=== PATIENT | female | born 1935 | race Caucasian/White ===

== ENCOUNTER 2017-01-11 08:48 | Emergency (ER) | payer MEDICARE, BC ==
[~2017-01-11] VITALS: Ht 160 cm; Wt 71.1 kg
[~2017-01-11 08:48] MED LIST: AMIT25TA20 PO; ASPI81TA82 PO; CARV3.125 PO; FURO20 PO; LISI5 PO; SIMV10 PO; XANA0.5T PO
[2017-01-11 08:57] VITALS: BP 153/78; PULSE 74; RESP 16; TEMP 97.9; O2SAT 98
[2017-01-11 09:05] VITALS: BP 153/78; PULSE 74; RESP 16; TEMP 97.9; O2SAT 98
[2017-01-11] MEDS ORDERED: LISI-519 PO (09:09)
[2017-01-11] MEDS ORDERED: SIMV10TA PO (09:10)
[2017-01-11] MEDS ORDERED: CARV3.12 PO (09:10)
[2017-01-11] MEDS ORDERED: FURO20TA PO (09:11)
--- NOTE | 2017-01-11 09:19 | PD ---
HPI Chief Complaint: Eye Problems/Injury Time Seen by Provider: 09:01 Travel History International Travel<30 days: No Contact w/Intl Traveler<30days: No Traveled to known affect area: No History of Present Illness HPI This patient complains of redness in her left eye. Yesterday she accidentally poked it with the Bristle of a broom. She does not wear contact lenses. She has no change in her vision. She has no eye pain. She has no drainage or actual bleeding from the eye. Symptoms severity is mild. Duration one day PFSH Past Medical History Anxiety: Yes Cancer: Yes (basal cell skin) Cardiovascular Problems: Yes (htn on meds) High Cholesterol: Yes Diminished Hearing: No Hypertension: Yes Migraines: Yes Tetanus Vaccination: < 5 Years Menopausal: Yes Dilation and Curettage (D&C): Yes (x2) Past Surgical History Appendectomy: Yes Joint Replacement: Yes (bilat hips and bilat shoulders) Social History Alcohol Use: Yes (occas. mix drinks or wine) Tobacco Use: No (quit approx 20 yrs ago cigs a ppd) Substance Use: No Allergies-Medications (Allergen,Severity, Reaction): Coded Allergies: penicillin G (Unverified Allergy, Severe, EDEMA, 01/11/17) Reported Meds & Prescriptions Reported Meds & Active Scripts Active Reported Furosemide 20 Mg Tab 20 Mg PO DAILY Carvedilol 3.125 Mg Tab 3.125 Mg PO BID Simvastatin 10 Mg Tab 10 Mg PO DAILY Lisinopril 5 Mg Tab 5 Mg PO DAILY Review of Systems General / Constitutional: No: Fever HENT: No: Headaches Cardiovascular: No: Chest Pain or Discomfort Physical Exam Narrative Right sclerae clear Left sclerae has diffuse conjunctival hemorrhage Pupil function normal Extraocular muscles intact No drainage or bleeding from the eye itself Psych: Normal mood and affect. Normal insight and judgment. SKIN: Focused skin assessment reveals no rash or ulcers. Skin is warm and dry. Palpation shows no induration or nodules. Fluorescein exam of the left eye reveals no corneal uptake or abrasion or foreign body Data Data Last Documented VS Vital Signs Date Time Temp Pulse Resp B/P (MAP) Pulse Ox O2 Delivery O2 Flow Rate FiO2 01/11/17 09:05 97.9 74 16 153/78 (103) 98 01/11/17 08:57 Room Air MDM Medical Decision Making Medical Screen Exam Complete: Yes Emergency Medical Condition: Yes Medical Record Reviewed: Yes Differential Diagnosis Conjunctival hemorrhage, scleral injury, corneal abrasion, foreign body Narrative Course I have reviewed the patient's electronic medical record. Patient has prominent conjunctival hemorrhage of the left eye after getting poked with a broom bristle. 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
== END 2017-01-11 09:37 | disposition home or self-care (01) ==
LOC: PHED 08:48
DX: H11.32 Conjunctival hemorrhage, left eye (principal); I10 Essential (primary) hypertension; E78.00 Pure hypercholesterolemia, unspecified; Z86.59 Personal history of other mental and behavioral disorders; Z85.828 Personal history of other malignant neoplasm of skin; Z86.79 Personal history of other diseases of the circulatory system; Z86.69 Personal history of other diseases of the nervous system and sense organs; W22.8XXA Striking against or struck by other objects, initial encounter
CPT/HCPCS: 99283

== ENCOUNTER 2017-07-16 20:02 | Emergency (ER) | payer MEDICARE, BC ==
[~2017-07-16] VITALS: Ht 160 cm; Wt 69.9 kg
[~2017-07-16 20:02] MED LIST changes: -AMIT25TA20 PO; -ASPI81TA82 PO; +CARV3.12 PO; -CARV3.125 PO; -FURO20 PO; +FURO20TA PO; +LISI-519 PO; -LISI5 PO; -SIMV10 PO; +SIMV10TA PO; -XANA0.5T PO
[2017-07-16 21:20] VITALS: BP 190/96; PULSE 76; RESP 20; TEMP 97.5; O2SAT 96
[2017-07-16 21:36] VITALS: BP 169/78; PULSE 78; RESP 18; O2SAT 97
--- NOTE | 2017-07-16 21:43 | PD ---
HPI Chief Complaint: GI Complaint Time Seen by Provider: 21:42 Travel History International Travel<30 days: No Contact w/Intl Traveler<30days: No Traveled to known affect area: No History of Present Illness HPI 82-year-old female came to the emergency room with history of constipation. Patient has history of constipation that comes periodically as per her and she manages at home with laxatives and sometimes even suppositories and enema. Patient says that she did not have bowel movement for 2 days over the weekend and then she started taking a lot of laxative and give herself an enema and suppository today and has had few small stool output. She also took some mag citrate after which she vomited. She has been drinking voraciously as per the patient. However today she suddenly started getting severe lower back pain radiating down to her left flank area and that is when she decided to come to the emergency room. Currently the pain is 7 out of 10. She does not want anything for pain. No aggravating or relieving factors identified. She has never had this kind of pain in the past. Vital signs were stable otherwise. No hematuria or dysuria. No history of trauma. Patient is moving back to [place] tomorrow and has been packing stuff today and yesterday. She is not sure if that activity caused the pain. [facility], LAT[facility] Past Medical History Narrative Medical List of her past medical, surgical, social and family history reviewed from the nursing note Anxiety: Yes Cancer: Yes (basal cell skin) Cardiovascular Problems: Yes (htn on meds) High Cholesterol: Yes Diminished Hearing: No Hypertension: Yes Migraines: Yes Menopausal: Yes Dilation and Curettage (D&C): Yes (x2) Past Surgical History Appendectomy: Yes Joint Replacement: Yes (bilat hips and bilat shoulders) Social History Alcohol Use: Yes (occas. mix drinks or wine) Tobacco Use: No (quit approx 20 yrs ago cigs a ppd) Substance Use: No Allergies-Medications (Allergen,Severity, Reaction): Coded Allergies: penicillin G (Unverified Allergy, Severe, EDEMA, 01/11/17) Comments List of her allergies reviewed from the nursing note Reported Meds & Prescriptions Reported Meds & Active Scripts Active Miralax Powder (Polyethylene Glycol 3350 Powder) 17 Gm Powd 17 Gm PO DAILY Mix and dissolve one measuring cap-ful (17 grams) in water or juice. Reported Furosemide 20 Mg Tab 20 Mg PO DAILY Carvedilol 3.125 Mg Tab 3.125 Mg PO BID Simvastatin 10 Mg Tab 10 Mg PO DAILY Lisinopril 5 Mg Tab 5 Mg PO DAILY Narrative Medication List of her home medications reviewed from the nursing note Review of Systems Except as stated in HPI: all other systems reviewed are Neg Musculoskeletal: Positive: Pain Physical Exam Narrative GENERAL: Awake, alert, elderly, mild distress SKIN: Focused skin assessment warm/dry. HEAD: Atraumatic. Normocephalic. EYES: Pupils equal and round. No scleral icterus. No injection or drainage. ENT: No nasal bleeding or discharge. Mucous membranes pink and moist. NECK: Trachea midline. No JVD. CARDIOVASCULAR: Regular rate and rhythm. No murmur appreciated. RESPIRATORY: No accessory muscle use. Clear to auscultation. Breath sounds equal bilaterally. GASTROINTESTINAL: Abdomen soft, non-tender, nondistended. Hepatic and splenic margins not palpable. MUSCULOSKELETAL: No obvious deformities. No clubbing. No cyanosis. No edema. No back tenderness on palpation NEUROLOGICAL: Awake and alert. No obvious cranial nerve deficits. Motor grossly within normal limits. Normal speech. PSYCHIATRIC: Appropriate mood and affect; insight and judgment normal. Data Data Last Documented VS Vital Signs Date Time Temp Pulse Resp B/P (MAP) Pulse Ox O2 Delivery O2 Flow Rate FiO2 07/17/17 00:18 82 18 148/88 (108) 07/16/17 23:35 97 Room Air 07/16/17 21:20 97.5 Orders Orders Complete Blood Count With Diff (07/16/17 22:10) Comprehensive Metabolic Panel (07/16/17 22:10) Lipase (07/16/17 22:10) Urinalysis - C+S If Indicated (07/16/17 22:10) Ct Abd/Pel W/O Iv Contrast (07/16/17 22:10) Iv Access Insert/Monitor (07/16/17 22:10) Ecg Monitoring (07/16/17 22:10) Oximetry (07/16/17 22:10) Ondansetron Inj (Zofran Inj) (07/16/17 22:15) Sodium Chloride 0.9% Flush (Ns Flush) (07/16/17 22:15) Sodium Chlor 0.9% 1000 Ml Inj (Ns 1000 M (07/16/17 22:30) Fleets Enema (Adult) (Fleets Enema (Adul (07/16/17 23:15) Fleets Enema (Adult) (Fleets Enema (Adul (07/16/17 23:45) Ed Discharge Order (07/16/17 23:41) Labs Laboratory Tests Test 07/16/17 22:10 White Blood Count 6.9 TH/MM3 Red Blood Count 4.27 MIL/MM3 Hemoglobin 12.7 GM/DL Hematocrit 37.3 % Mean Corpuscular Volume 87.5 FL Mean Corpuscular Hemoglobin 29.8 PG Mean Corpuscular Hemoglobin Concent 34.0 % Red Cell Distribution Width 12.0 % Platelet Count 218 TH/MM3 Mean Platelet Volume 8.3 FL Neutrophils (%) (Auto) 79.9 % Lymphocytes (%) (Auto) 14.7 % Monocytes (%) (Auto) 4.6 % Eosinophils (%) (Auto) 0.4 % Basophils (%) (Auto) 0.4 % Neutrophils # (Auto) 5.6 TH/MM3 Lymphocytes # (Auto) 1.0 TH/MM3 Monocytes # (Auto) 0.3 TH/MM3 Eosinophils # (Auto) 0.0 TH/MM3 Basophils # (Auto) 0.0 TH/MM3 CBC Comment DIFF FINAL Differential Comment Urine Color YELLOW Urine Turbidity CLEAR Urine pH 7.0 Urine Specific [place] 1.010 Urine Protein TRACE mg/dL Urine Glucose (UA) NEG mg/dL Urine Ketones TRACE mg/dL Urine Occult Blood NEG Urine Nitrite NEG Urine Bilirubin NEG Urine Urobilinogen 0.2 MG/DL Urine Leukocyte Esterase NEG Urine RBC 0-2 /hpf Urine WBC 0-2 /hpf Urine Squamous Epithelial Cells 0-5 /hpf Urine Bacteria NONE /hpf Microscopic Urinalysis Comment CULT NOT INDICATED Blood Urea Nitrogen 13 MG/DL Creatinine 0.71 MG/DL Random Glucose 134 MG/DL Total Protein 7.0 GM/DL Albumin 3.5 GM/DL Calcium Level 8.5 MG/DL Alkaline Phosphatase 86 U/L Aspartate Amino Transf (AST/SGOT) 20 U/L Alanine Aminotransferase (ALT/SGPT) 19 U/L Total Bilirubin 0.4 MG/DL Sodium Level 128 MEQ/L Potassium Level 3.7 MEQ/L Chloride Level 93 MEQ/L Carbon Dioxide Level 25.0 MEQ/L Anion Gap 10 MEQ/L Estimat Glomerular Filtration Rate 79 ML/MIN Lipase 181 U/L [facility] Medical Decision Making Medical Screen Exam Complete: Yes Emergency Medical Condition: Yes Medical Record Reviewed: Yes Differential Diagnosis Lumbar radiculopathy, constipation, ureteral calculus, musculoskeletal pain Narrative Course 10:55 PM blood test results are back and patient's sodium and chloride are moderately low. UA is negative. Awaiting for the CT to be done and resulted. Patient was given nausea medication and IV fluid bolus. She does not want anything for the pain. 11:[address] scan shows stool all the way in the colon. I have ordered for Fleet Enema. Patient will be discharged home with prescription for MiraLAX in addition to the array of laxative she is already taking. Procedures EKG Prior to Arrival: No Diagnosis Primary Impression: Obstipation Additional Impressions: Abdominal pain Qualified Codes: R10.30 - Lower abdominal pain, unspecified Back pain Qualified Codes: M54.5 - Low back pain Hyponatremia Referrals: Primary Care Physician Additional Instructions: Take the medication in addition to all the other laxatives you are taking. Eat high-fiber diet. Your fluid intake should consists of fluids like Gatorade that has some sodium content and not just water since that dilates your sodium in the body. Follow-up with your primary care when you get back home. Med/Other Pt SpecificInfo: Prescription(s) given Scripts Polyethylene Glycol 3350 Powder (Miralax Powder) 17 Gm Powd 17 GM PO DAILY for Constipation, #1 CAN 0 Refills Mix and dissolve one measuring cap-ful (17 grams) in water or juice. Prov: Anneliese Lopes MD 07/16/17 Disposition: DISCHARGE HOME Condition: Stable Anneliese Lopes MD July 16, 2017 21:43
[2017-07-16 21:58] VITALS: BP 160/80; PULSE 82; RESP 18; O2SAT 98
[2017-07-16] MEDS ORDERED: SODIUM CHLORIDE 0.9% FLUSH 10 ML FLUSH IV FLUSH PRN (22:15)
[2017-07-16] MEDS ORDERED: ONDANSETRON HCL 4 MG/2 ML VIAL IVP ONE (22:15)
[2017-07-16 22:21] LABS: BILIRUBIN, URINE NEG (NEG); BLOOD, URINE NEG (NEG); GLUCOSE,URINE NEG (NEG); KETONE, URINE TRACE mg/dL (NEG); NITRITE,URINE NEG (NEG); URINE COLOR YELLOW (YELLW/STRAW); URINE LEUKOCYTE ESTERASE NEG (NEG)
[2017-07-16 22:22] LABS: AUTOMATED NEUTROPHIL # 5.6 TH/MM3 (1.8-7.7); BASOPHIL % 0.4 % (0.0-2.0); EOSINOPHIL % 0.4 % (0.0-4.0); HEMATOCRIT 37.3 % (35.0-46.0); HEMOGLOBIN 12.7 GM/DL (11.6-15.3); LYMPH % 14.7 % (9.0-44.0); MEAN CELL VOLUME 87.5 FL (80.0-100.0); MEAN CORPUSCULAR HEMOGLOBIN 29.8 PG (27.0-34.0); MEAN PLATELET VOLUME 8.3 FL (7.0-11.0); MONO % 4.6 % (0.0-8.0); MONOCYTE # 0.3 TH/MM3 (0-0.9); NEUT % 79.9 % (16.0-70.0); PLATELET COUNT 218 TH/MM3 (150-450); RED BLOOD COUNT 4.27 MIL/MM3 (4.00-5.30); WHITE BLOOD COUNT 6.9 TH/MM3 (4.0-11.0)
[2017-07-16 22:25] LABS: RBC, URINE 0-2 /hpf (0-3); SQUAMOUS EPITHELIAL CELL URINE 0-5 /hpf (0-5); WBC, URINE 0-2 /hpf (0-5)
[2017-07-16 22:29] LABS: CHLORIDE 93 MEQ/L (98-107); SODIUM (NA) 128 MEQ/L (136-145)
[2017-07-16] MEDS ORDERED: SODIUM CHLOR 0.9% 1000 ML INJ 1,000 ML IV ONE (22:30)
[2017-07-16 22:32] LABS: CALCIUM 8.5 MG/DL (8.5-10.1)
[2017-07-16 22:33] LABS: ALBUMIN 3.5 GM/DL (3.4-5.0); BLOOD UREA NITROGEN 13 MG/DL (7-18); GLUCOSE,RANDOM 134 MG/DL (74-106)
[2017-07-16 22:36] LABS: ALT (GPT) 19 U/L (10-53); AST (GOT) 20 U/L (15-37); CREATININE 0.71 MG/DL (0.50-1.00); GLOMERULAR FILTRATION RATE 79 ML/MIN (>89)
[2017-07-16 22:38] LABS: TOTAL BILIRUBIN ADULT 0.4 MG/DL (0.2-1.0)
[2017-07-16 22:39] LABS: ALKALINE PHOSPHATASE 86 U/L (45-117)
--- NOTE | 2017-07-16 23:13 | RADRPT ---
EXAM DATE/TIME: 07/16/2017 22:38 [facility] COMPARISON: No previous studies available for comparison. INDICATIONS : Abdominal pain. Constipation. Vomiting. Weakness. ORAL CONTRAST: No oral contrast ingested. RADIATION DOSE: 12.58 CTDIvol (mGy) MEDICAL HISTORY : Hypertension. SURGICAL HISTORY : Appendectomy. ENCOUNTER: Initial ACUITY: 3 days PAIN SCALE: 7/10 LOCATION: Bilateral upper quadrant lower quadrant TECHNIQUE: Volumetric scanning of the abdomen and pelvis was performed. Using automated exposure control and ad justment of the mA and/or kV according to patient size, radiation dose was kept as low as reasonably achievable to obtain optimal diagnostic quality images. DICOM format image data is available electro nically for review and comparison. FINDINGS: LOWER LUNGS: Mild bibasilar atelectatic changes. Small hiatal hernia LIVER: Homogeneous density without lesion. Nodular like density along the supra-anterior aspect of the righ t hepatic dome has a density identical to be adjacent liver and I believe represents a focal area par enchymal eventration. There is no dilation of the biliary tree. No calcified gallstones. SPLEEN: Normal size without lesion. PANCREAS: Within normal limits. KIDNEYS: Normal in size and shape. There is no mass, stone, or hydronephrosis. ADRENAL GLANDS: Within normal limits. VASCULAR: There is no aortic aneurysm but the aorta is ectatic in the infrarenal distribution measuring 2.9 cm in diameter. BOWEL/MESENTERY: Stool throughout the colon to the mid descending. Findings could represent some degree of constipatio n. ABDOMINAL WALL: Within normal limits. RETROPERITONEUM: There is no lymphadenopathy. BLADDER: No wall thickening or mass. REPRODUCTIVE: Pelvic viscera are exam is limited by the beam hardening artifact from bilateral hip arthroplasties. There does appear to be a small calcific density in the uterus probably representing a degenerated fi broid. INGUINAL: There is no lymphadenopathy or hernia. MUSCULOSKELETAL: Dextroscoliosis of the lumbar spine with associated degenerative spurring. CONCLUSION: 1. Stool throughout the colon down to the mid to distal descending. Findings could represent some deg ree of constipation. 2. Small hiatal hernia. 3. 3.7 cm nodular-like density along the anterosuperior aspect of the hepatic dome. I believe this re presents normal liver eventrating up into the base of the diaphragm. 4. 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 Jimbo Wade MD on July 16, 2017 at 23:04 Board Certified Radiologist. This report was verified electronically.
[2017-07-16] MEDS ORDERED: SOD PHOSPHATE/SOD BIPHOSPHATE (ADULT) ENEMA 133ML RECTAL ONE ×2 (23:15→23:45)
[2017-07-16] MEDS ORDERED: MIRA3350 PO (23:22)
[2017-07-16 23:30] VITALS: O2SAT 98
[2017-07-16 23:35] VITALS: BP 181/85; PULSE 77; RESP 18; O2SAT 97
[2017-07-17 00:18] VITALS: BP 148/88
== END 2017-07-17 00:22 | disposition home or self-care (01) ==
LOC: PHED 20:02
DX: K59.00 Constipation, unspecified (principal); R10.30 Lower abdominal pain, unspecified; M54.5 Low back pain; K44.9 Diaphragmatic hernia without obstruction or gangrene; E87.1 Hypo-osmolality and hyponatremia; F41.9 Anxiety disorder, unspecified; I10 Essential (primary) hypertension; E78.00 Pure hypercholesterolemia, unspecified; Z87.891 Personal history of nicotine dependence
CPT/HCPCS: 74176; 80053; 81001; 83690; 85025; 96361; 96374; 99284; J2405; J7030